=== PATIENT | male | born 1990 ===

== ENCOUNTER 2021-01-11 11:47 | Inpatient (IN) ==
[2021-01-11 12:29] LABS: Basophils % 0.1 % (0.0-0.8); Hematocrit 43.1 VOL% (42.0-52.0); Immature Granulocytes % 0.5 %; Immature Granulocytes Absolute 0.06 #; Lymphocytes # 0.9 10*3/uL (1.4-4.0); Lymphocytes % 8.4 % (21.2-54.2); Mean Corpuscular HGB Conc 32.5 GM/DL (32-36); Mean Corpuscular Volume 88.9 FL (87-102); Monocytes % 6.3 % (1.7-12.7); Neutrophils % 84.7 % (38.7-73.9); Platelet Count 260 T/CUMM (130-400); Red Blood Count 4.85 MC/CUMM (3.8-5.5); Red Cell Distribution Width 13.2 % (9.3-17.3)
[2021-01-11 12:50] LABS: PT Patient Result 10.3 SECS (9.8-11.9); Partial Thromboplastin Time 29.9 SECS (23.9-33.8)
[2021-01-11 12:55] LABS: Alanine Aminotransferase 37 U/L (16-61); Albumin 3.1 G/DL (3.4-5.0); Alkaline Phosphatase 55 U/L (45-117); Aspartate Amino Transferase 34 U/L (0-37); Bilirubin,Total < 0.39 MG/DL (0.2-1.0); Blood Urea Nitrogen 13 MG/DL (7-18); Calcium 8.4 MG/DL (8.5-10.1); Carbon Dioxide 27 MMOL/L (21-32); Estimated Glom Filtration Rate 86 ML/MIN; Glucose 118 MG/DL (74-106); Potassium 3.9 MMOL/L (3.5-5.1); Sodium 136 MMOL/L (136-145); Total Protein 7.5 G/DL (5.0-7.5)
[2021-01-11] MEDS ORDERED: cefTRIAXone 1,000 MG in SODIUM CHLORIDE 0.9% 100 ML IV STA (13:04)
[2021-01-11 13:06] LABS: Ferritin 451.3 ng/ml (26-388)
[2021-01-11] MEDS ORDERED: GLUCAGON 1 MG VIAL IM PRN (14:08)
[2021-01-11] MEDS ORDERED: DEXTROSE 50% 25 GM/50 ML VIAL IV PRN (14:08)
[2021-01-11] MEDS ORDERED: ENOXAPARIN 40 MG/0.4 ML SYRINGE SUBCUT SCH (14:30)
[2021-01-11 14:33] LABS: Risk Ratio 3.46; Thyroid Stimulating Hormone 1.84 uIU/ml (0.358-3.74); VLDL CHOLESTEROL 34.4 MG/DL
[2021-01-11] MEDS: SODIUM CHLORIDE 0.9% 1,000 ML IV SCH ×2 (15:44→22:55)
[2021-01-11] MEDS: AZITHROMYCIN INJ 500 MG in SODIUM CHLORIDE 0.9% 250 ML IV SCH (15:44)
[2021-01-11] MEDS: ZINC SULFATE 220 MG CAPSULE PO SCH (15:44)
[2021-01-11] MEDS: CHOLECALCIFEROL 1,000 UNIT TABLET PO SCH (15:44)
[2021-01-11] MEDS: CETIRIZINE 10 MG TABLET PO SCH (15:45)
[2021-01-11] MEDS ORDERED: REMDESIVIR 200 MG in SODIUM CHLORIDE 0.9% 210 ML IV ONE (16:00)
[2021-01-11 16:12] LABS: Barbiturates Screen,Urine Negative (Negative); Benzodiazepines Screen,Urine Negative (Negative); Cannabinoid Screen,Urine Negative (Negative); Opiate Screen,Urine Negative (Negative); Phencyclidine Screen,Urine Negative (Negative)
[2021-01-11] MEDS: ACETAMINOPHEN 325 MG TABLET PO PRN (16:46)
[2021-01-11] MEDS: ALBUTEROL INHALER 18 GM INH SCH ×2 (18:03→20:53)
[2021-01-11] MEDS: guaiFENesin/DM ER 600-30 MG TABLET PO PRN (20:35)
[2021-01-11] MEDS: FAMOTIDINE 20 MG TABLET PO SCH (20:35)
[2021-01-11] MEDS: APIXABAN 5 MG TABLET PO SCH (20:35)
[2021-01-11] MEDS: ASCORBIC ACID 500 MG TABLET PO SCH (20:35)
[2021-01-12] MEDS: SODIUM CHLORIDE 0.9% 1,000 ML IV SCH ×2 (01:59→06:12)
[2021-01-12] MEDS: ALBUTEROL INHALER 18 GM INH SCH ×4 (02:02→20:25)
[2021-01-12] MEDS: ACETAMINOPHEN 325 MG TABLET PO PRN (03:57)
[2021-01-12 05:26] LABS: Hematocrit 38.7 VOL% (42.0-52.0); Immature Granulocytes % 0.7 %; Immature Granulocytes Absolute 0.07 #; Lymphocytes # 0.8 10*3/uL (1.4-4.0); Lymphocytes % 8.3 % (21.2-54.2); Mean Corpuscular HGB Conc 33.6 GM/DL (32-36); Mean Platelet Volume 9.9 FL (9.6-12.0); Monocytes % 9.3 % (1.7-12.7); Neutrophils % 81.7 % (38.7-73.9); Platelet Count 256 T/CUMM (130-400); Red Cell Distribution Width 13.4 % (9.3-17.3); White Blood Count 9.8 T/CUMM (4-12)
[2021-01-12 06:44] LABS: Calcium 8.2 MG/DL (8.5-10.1); Ferritin 486.8 ng/ml (26-388); Osmolality,Calculated 272.8 MOS/KG (273-304); Potassium 3.9 MMOL/L (3.5-5.1)
[2021-01-12] MEDS: ZINC SULFATE 220 MG CAPSULE PO SCH (08:32)
[2021-01-12] MEDS: APIXABAN 5 MG TABLET PO SCH ×2 (08:32→20:30)
[2021-01-12] MEDS: DEXAMETHASONE 4 MG/1 ML VIAL IV SCH (08:32)
[2021-01-12] MEDS: ASCORBIC ACID 500 MG TABLET PO SCH ×2 (08:32→20:30)
[2021-01-12] MEDS: CETIRIZINE 10 MG TABLET PO SCH (08:32)
[2021-01-12] MEDS: CHOLECALCIFEROL 1,000 UNIT TABLET PO SCH (08:32)
[2021-01-12] MEDS: amLODIPine 2.5 MG TABLET PO SCH (08:32)
[2021-01-12] MEDS: LEVOTHYROXINE 25 MCG TABLET PO SCH (08:32)
[2021-01-12] MEDS: ONDANSETRON 4 MG/2 ML VIAL IV PRN ×2 (08:45→23:49)
[2021-01-12] MEDS ORDERED: NF- (Fluticasone Furoate-Vilanterol [Breo Ellipta] 200-25 mcg/dose Bl INH SCH (09:00)
[2021-01-12] MEDS: REMDESIVIR 100 MG in SODIUM CHLORIDE 0.9% 100 ML IV SCH (09:57)
[2021-01-12] MEDS ORDERED: cefTRIAXone 1,000 MG in SYRINGE 1 EACH IV SCH (14:30)
[2021-01-12] MEDS: AZITHROMYCIN INJ 500 MG in SODIUM CHLORIDE 0.9% 250 ML IV SCH (15:16)
[2021-01-12] MEDS: FAMOTIDINE 20 MG TABLET PO SCH (20:30)
[2021-01-12] MEDS: guaiFENesin/DM ER 600-30 MG TABLET PO PRN (23:49)
[2021-01-13] MEDS: ALBUTEROL INHALER 18 GM INH SCH ×2 (00:01→10:06)
[2021-01-13 06:04] LABS: Calcium 8.6 MG/DL (8.5-10.1); Ferritin 809.1 ng/ml (26-388); Osmolality,Calculated 276.7 MOS/KG (273-304); Potassium 4.5 MMOL/L (3.5-5.1)
[2021-01-13] MEDS: CHOLECALCIFEROL 1,000 UNIT TABLET PO SCH (10:03)
[2021-01-13] MEDS: ZINC SULFATE 220 MG CAPSULE PO SCH (10:03)
[2021-01-13] MEDS: CETIRIZINE 10 MG TABLET PO SCH (10:03)
[2021-01-13] MEDS: ASCORBIC ACID 500 MG TABLET PO SCH (10:03)
[2021-01-13] MEDS: amLODIPine 2.5 MG TABLET PO SCH (10:04)
[2021-01-13] MEDS: APIXABAN 5 MG TABLET PO SCH (10:04)
[2021-01-13] MEDS: DEXAMETHASONE 4 MG/1 ML VIAL IV SCH (10:05)
[2021-01-13] MEDS: LEVOTHYROXINE 25 MCG TABLET PO SCH (10:06)
[2021-01-13] MEDS: REMDESIVIR 100 MG in SODIUM CHLORIDE 0.9% 100 ML IV SCH (10:07)
[2021-01-13 11:09] VITALS: BP 147/91
== END 2021-01-13 14:00 | disposition home or self-care (01) | DRG 177 ==
LOC: N.2E 11:47 → N.ED 11:47 → SUATTDRO 14:04 → N.2E 16:05
PROVIDERS: ADMIT Phlebology; ATTEND Internal Medicine